=== PATIENT | male | born 1990 | race Caucasian/White ===

== ENCOUNTER 2017-05-04 16:03 | Emergency (ER) | payer SELFPAY ==
[~2017-05-04] VITALS: Ht 182.9 cm; Wt 74.0 kg
[~2017-05-04 16:03] MED LIST: MMW SS; Z.0.NO CURRENT MEDS
[2017-05-04 16:05] VITALS: BP 149/87; PULSE 91; RESP 20; TEMP 97.6; O2SAT 100
[2017-05-04] MEDS ORDERED: AUGM875T3 PO (17:14)
[2017-05-04] MEDS ORDERED: ACETAMINOPHEN/HYDROcodone 325 MG/7.5 MG TAB PO ONE (17:15)
[2017-05-04] MEDS ORDERED: LIDOCAINE HCL 1% 30 ML VIAL INFIL ONE (17:15)
--- NOTE | 2017-05-04 17:15 | PD ---
HPI Chief Complaint: Bite or Sting Time Seen by Provider: 17:01 Travel History International Travel<30 days: No Contact w/Intl Traveler<30days: No Traveled to known affect area: No History of Present Illness HPI 26-year-old male presents emergency Department with lacerations to his left hand. Patient is right-handed. 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 As patient's tried to remove dog in the bed he bit him resulting in a deep laceration in the palmar aspect of his hand with multiple other superficial lacerations and puncture wounds. Patient states he is able to move his hand with full range of motion but is extremely painful. The states he has been able to control bleeding on his own. States he does have tingling of his index finger but is able to move his finger as usual. Patient denies weakness of his hands. Patient denies fevers or chills. Patient is concerned because he works with his hands as an occupation. Patient does not remember his last tetanus vaccination. [facility] Past Medical History Cancer: No Diabetes: No Glaucoma: No Hepatitis: No Hiatal Hernia: No Hypertension: No Medical other: Yes (BELLS PALSY 2008) Thyroid Disease: No Past Surgical History Other Surgery: Yes (REMOVAL FOREIGN BODY RIGHT ARM) Social History Alcohol Use: Yes (OCC) Tobacco Use: Yes (1/2 PPD) Substance Use: No Allergies-Medications (Allergen,Severity, Reaction): Coded Allergies: No Known Allergies (Verified , 10/28/10) Reported Meds & Prescriptions Reported Meds & Active Scripts Active Augmentin (Amoxicillin-Clavulanate) 875-125 Mg Tab 1 Tab PO BID Review of Systems Except as stated in HPI: all other systems reviewed are Neg Physical Exam Narrative GENERAL: Well-nourished in mild distress SKIN: Focused skin assessment warm/dry. HEAD: Atraumatic. Normocephalic. EYES: Pupils equal and round. No scleral icterus. No injection or drainage. ENT: No nasal bleeding or discharge. Mucous membranes pink and moist. NECK: Trachea midline. No JVD. CARDIOVASCULAR: Regular rate and rhythm. No murmur appreciated. RESPIRATORY: No accessory muscle use. Clear to auscultation. Breath sounds equal bilaterally. MUSCULOSKELETAL: No obvious deformities. No clubbing. No cyanosis. No edema. Left hand- deep laceration to palmar aspect of the left hand- approximately 2-3 cm, puncture wound to the dorsal aspect between the second and third metacarpals. No evidence of tendon or ligament involvement. No evidence of foreign bodies. Very tender to palpation. Multiple superficial puncture wounds to hand. Of note there is a deeper puncture wound to the first and second metacarpal webspace. No evidence of tendon or ligament involvement. Neurovascularly intact although patient does have rather thick calluses. NEUROLOGICAL: Awake and alert. No obvious cranial nerve deficits. Motor grossly within normal limits. Normal speech. PSYCHIATRIC: Appropriate mood and affect; insight and judgment normal. Data Data Last Documented VS Vital Signs Date Time Temp Pulse Resp B/P (MAP) Pulse Ox O2 Delivery O2 Flow Rate FiO2 05/04/17 18:50 05/04/17 16:05 97.6 91 20 100 Orders Orders Acetamin-Hydrocod 325-7.5 Mg (Industry 7.5 (05/04/17 17:15) Lidocaine 1% Inj (Xylocaine 1% Inj) (05/04/17 17:15) Hand, Complete (Fqu3dsc) (05/04/17 ) Mandatory Outpatient Referral (05/04/17 18:42) Tetanus/Diphtheria Tox Adult (Tetanus/Di (05/04/17 18:45) Ed Discharge Order (05/04/17 18:44) MDM Medical Decision Making Medical Screen Exam Complete: Yes Emergency Medical Condition: Yes Differential Diagnosis Left Hand laceration, dog bite, fracture Narrative Course 26-year-old male presents emergency Department with lacerations to his left hand. Patient is right-handed. 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 As patient's tried to remove dog in the bed he bit him resulting in a deep laceration in the palmar aspect of his hand with multiple other superficial lacerations and puncture wounds. Patient states he is able to move his hand with full range of motion but is extremely painful. The states he has been able to control bleeding on his own. States he does have tingling of his index finger but is able to move his finger as usual. Patient denies weakness of his hands. Patient denies fevers or chills. Patient is concerned because he works with his hands as an occupation. Patient does not remember his last tetanus vaccination. As far as the patient knows, the dog is up-to-date on immunizations. There is no evidence of erratic behavior of the dog. States that the dog was likely stressed resulting in this injury. Vital signs stable. Physical exam findings consistent with a dog bite to the left hand. Last Impressions Hand X-Ray 05/04/17 0000 Signed Impressions: Service Date/Time: Thursday, May 04, 2017 17:43 - CONCLUSION: 1. Soft tissue swelling and gas in the thenar eminence with no radiopaque foreign body. 2. No underlying bony abnormality. Ron Justice MD Laceration repair to the palmar aspect of his hand as this wound was gaping. 3 5-0 Prolene sutures placed to reduce complications. The site was thoroughly explored for foreign bodies and tendon involvement. Patient remained 5 out of 5 strength in his hands fingers and wrists. I strongly advised patient to follow up with a hand specialist. Tetanus vaccination and hydrocodone administered. Augmentin prescribed. Avoid excessive left hand use for at least 1 week. Because patient does not have a primary care physician I'm concerned about wound care. Advised patient to follow-up in emergency department in 1-2 days for wound check. Advised patient to monitor for signs of infection including increased redness, swelling, pus. If any of these occur immediately return to the emergency department. Diagnosis Primary Impression: Dog bite Qualified Codes: W54.0XXA - Bitten by dog, initial encounter Additional Impression: Hand laceration Qualified Codes: S61.412A - Laceration without foreign body of left hand, initial encounter Referrals: Selwyn Perez III, MD Additional Instructions: Follow up with your primary care physician within 2-3 days. If you are unable to follow up with the primary care physician, follow-up in the emergency department in 2 days for wound check. If your symptoms persist or worsen, return to the emergency department. Keep area clean and dry. You may bathe as normal. You may use [id number] triple antibiotic ointments for your injury daily. Change dressings daily. If bleeding starts again, applied pressure and elevate the area. If he developed increased redness, swelling, or pain return to the emergency department. Suture removal in 7-10 days or as directed by the hand specialist Scripts Amoxicillin-Clavulanate (Augmentin) 875-125 Mg Tab 1 TAB PO BID for Infection, #20 TAB 0 Refills Prov: Mray Rosales 05/04/17 Disposition: 01 DISCHARGE HOME Condition: Stable Mary Rosales May 04, 2017 17:15
--- NOTE | 2017-05-04 18:00 | RADRPT ---
EXAM DATE/TIME: 05/04/2017 17:43 [facility] COMPARISON: No previous studies available for comparison. INDICATIONS : Dog bite- Laceration. MEDICAL HISTORY : None. SURGICAL HISTORY : None. ENCOUNTER: Initial ACUITY: 1 day PAIN SCORE: 8/10 LOCATION: Left Palm of hand. FINDINGS: Three view examination of the left hand demonstrates no acute fracture or malalignment. There is soft tissue swelling and gas in the thenar eminence. There is no radiopaque foreign body. The carpal bone s appear intact. The interphalangeal and metacarpophalangeal joints are intact. Bony mineralization is normal. CONCLUSION: 1. Soft tissue swelling and gas in the thenar eminence with no radiopaque foreign body. 2. No underlying bony abnormality. Ron Justice MD on May 04, 2017 at 17:57 Board Certified Radiologist. This report was verified electronically.
[2017-05-04] MEDS ORDERED: TETANUS/DIPHTHERIA TOXOID ADULT 0.5 ML VIAL IM ONE (18:45)
== END 2017-05-04 19:16 | disposition home or self-care (01) ==
LOC: NEPK 16:03
DX: S61.412A Laceration without foreign body of left hand, initial encounter (principal); F17.200 Nicotine dependence, unspecified, uncomplicated; W54.0XXA Bitten by dog, initial encounter; Z23 Encounter for immunization
CPT/HCPCS: 12001; 73130; 90471; 90714